=== PATIENT | male | born 1955 | race Caucasian/White ===

== ENCOUNTER → 2017-06-01 | Outpatient (CLI) | payer OTHER ==
[2017-06-01 08:52] LABS: ABSOLUTE LYMPHOCYTES (AUTO) 1.5 10^3/uL (0.5-4.7); ABSOLUTE MONOCYTES (AUTO) 0.4 10^3/uL (0.1-1.4); ABSOLUTE NEUT (AUTO) 2.9 10^3/uL (1.7-8.2); BASOPHILS % (AUTO) 0.6 % (0-2); EOSINOPHILS % (AUTO) 0.9 % (0-6); HEMATOCRIT 43.2 % (37.9-51.0); HEMOGLOBIN 15.1 g/dL (13.5-17.0); HGB HCT DIFFERENCE 2.1; LYMPHOCYTES % (AUTO) 30.6 % (13-45); MEAN CORPUSCULAR HEMOGLOBIN 31.8 pg (27.0-33.4); MEAN CORPUSCULAR HGB CONC 34.9 g/dL (32.0-36.0); MEAN CORPUSCULAR VOLUME 91 fl (80-97); MONOCYTES % (AUTO) 8.4 % (3-13); RED BLOOD COUNT 4.75 10^6/uL (4.35-5.55); RED CELL DISTRIBUTION WIDTH 12.9 % (11.5-14.0); SEGMENTED NEUTROPHILS % (AUTO) 59.5 % (42-78); WHITE BLOOD COUNT 4.9 10^3/uL (4.0-10.5)
[2017-06-01 09:21] LABS: ANION GAP 15 (5-19); BLOOD UREA NITROGEN 12 mg/dL (7-20); CALCIUM 9.9 mg/dL (8.4-10.2); CARBON DIOXIDE 27 mmol/L (22-30); CHLORIDE 99 mmol/L (98-107); CREATININE RESULT 0.75 mg/dL (0.52-1.25); GLUCOSE 98 mg/dL (75-110); POTASSIUM 4.3 mmol/L (3.6-5.0); SODIUM 140.5 mmol/L (137-145)
[2017-06-01 09:23] LABS: APPEARANCE,URINE CLEAR; BILIRUBIN,URINE NEGATIVE (NEGATIVE); GLUCOSE, URINE NEGATIVE (NEGATIVE); KETONES,URINE NEGATIVE (NEGATIVE); LEUKOCYTE ESTERASE,URINE NEGATIVE (NEGATIVE); NITRITE,URINE NEGATIVE (NEGATIVE); PROTEIN,URINE NEGATIVE (NEGATIVE); URINE SPECIFIC GRAVITY 1.014; UROBILINOGEN,URINE NEGATIVE mg/dL (<2.0)
--- NOTE | 2017-06-01 10:22 | RADIOLOGY REPORT (SQ) ---
EXAM DESCRIPTION: CHEST PA/LATERAL COMPLETED DATE/TIME: 06/01/2017 9:01 am REASON FOR STUDY: PRE-OP COMPARISON: None. EXAM PARAMETERS: NUMBER OF VIEWS: two views TECHNIQUE: Digital Frontal and Lateral radiographic views of the chest acquired. RADIATION DOSE: NA LIMITATIONS: none FINDINGS: LUNGS AND PLEURA: No opacities, masses or pneumothorax. No pleural effusion. MEDIASTINUM AND HILAR STRUCTURES: No masses or contour abnormalities. HEART AND VASCULAR STRUCTURES: Heart normal size. No evidence for failure. BONES: No acute findings. HARDWARE: None in the chest. OTHER: No other significant finding. IMPRESSION: NO SIGNIFICANT RADIOGRAPHIC FINDING IN THE CHEST. TECHNICAL DOCUMENTATION: JOB ID: [id number] [employer]- All Rights Reserved
--- NOTE | 2017-06-01 13:01 | EKG REPORT ---
SEVERITY:- NORMAL ECG - SINUS RHYTHM : Confirmed by: Freddy Richter MD 01-Jun-2017 13:00:18
== END ==
LOC: OD 08:17
PROVIDERS: ATTEND Orthopaedic Surgery
DX: Z01.818 Encounter for other preprocedural examination (principal)
CPT/HCPCS: 36415; 71020; 80048; 81001; 85025; 93005; 93010

== ENCOUNTER 2017-06-29 09:18 | Inpatient (IN) | payer OTHER ==
[~2017-06-29 09:18] MED LIST: BUPIVACAINE INJ/PF LIPOSOME/PF 266 MG/20 ML SDV INJ PRN; CEFAZOLIN INJ 1 GM VIAL INJ PRN; IBUPROFEN 800 MG in NORMAL SALINE 250 ML IV PRN; LACTATED RINGERS 1000 ML IV PRN; LANSOPRAZOLE 15 MG TAB.RAP.DR PO PRN; LIDOCAINE 0.5% INJ-PF (5 MG/ML) 50 ML SDV SUBCUT PRN; OXYCODONE HCL SR 10 MG TABLET PO PRN; VANCOMYCIN HCL 1,000 MG in DEXTROSE 5%-WATER 250 ML IV PRN
[2017-06-29] MEDS ORDERED: BUPIVACAINE INJ/PF LIPOSOME/PF 266 MG/20 ML SDV ONE (10:19)
[2017-06-29] MEDS ORDERED: THROMBIN (BOVINE) 5000 UNIT EPITAXIS KIT ONE (10:19)
[2017-06-29] MEDS ORDERED: THROMBIN (BOVINE) TOPICAL 20000 UNIT VIAL ONE (10:20)
[2017-06-29] MEDS ORDERED: MIDAZOLAM 2 MG/2 ML INJ ONE (10:26)
[2017-06-29] MEDS ORDERED: FENTANYL CITRATE INJ/PF 100 MCG/2 ML AMPUL ONE (10:26)
[2017-06-29] MEDS ORDERED: EPHEDRINE SULFATE INJ 50 MG/1 ML AMPULE ONE (10:26)
[2017-06-29] MEDS ORDERED: PROPOFOL INJ 200 MG/20 ML VIAL IV ONE ×2 (10:27→10:28)
[2017-06-29] MEDS ORDERED: TRANEXAMIC ACID INJ/PF 1,000 MG/10 ML SDV IV ONE (10:27)
[2017-06-29] MEDS ORDERED: KETAMINE HCL INJ 500 MG/10 ML VIAL ONE (10:27)
[2017-06-29] MEDS ORDERED: GLYCOPYRROLATE INJ 0.4 MG/2 ML VIAL ONE (10:29)
[2017-06-29] MEDS ORDERED: LIDOCAINE 2% INJ-PF (20 MG/ML) 2 ML AMPUL ONE (10:29)
[2017-06-29] MEDS ORDERED: ONDANSETRON HCL INJ/PF 4 MG/2 ML SDV ONE (10:29)
[2017-06-29] MEDS ORDERED: DEXAMETHASONE SOD PHOSPHATE INJ 4 MG/1 ML VIAL ONE (10:29)
[2017-06-29] MEDS ORDERED: METOCLOPRAMIDE HCL INJ/PF 10 MG/2 ML SDV ONE (10:29)
--- NOTE | 2017-06-29 11:49 | Operative Report ---
Operative Report DATE OF SURGERY: 06/29/17 PREOPERATIVE DIAGNOSIS: Left hip arthritis OPERATION: Left hip arthroplasty SURGEON: KIM JENNINGS [employer] LIP READING: MARTHA CAGE ANESTHESIA: Spinal TISSUE REMOVED OR ALTERED: Bone to pathology ESTIMATED BLOOD LOSS: 100 PROCEDURE: Implants used: Femur: Arnold Accolade 2 size 4 femur Acetabular shell: 58 mm hemispherical shell Liner: 36 mm flat cross-link polyethylene liner Head: 36 mm chrome cobalt head -5 neck The patient is placed in a right lateral decubitus position on the operating table. The left lower extremity and hindquarter is prepped and draped in a sterile fashion. A curvilinear incision was made over the greater trochanter a posterior approach the hip was taken. The femoral head is dislocated and the femoral neck transected using an oscillating saw. Attention was next turned to the acetabulum. Soft tissues cleared off the acetabulum using electrocautery. The acetabulum was then prepared using a series of hemispherical reamers until a 57 millimeters reamer is seated. Subsequently a 58 millimeters Arnold titanium hemispherical shell is impacted into position and secured with one screw. A standard flat 36 millimeters cross- link liner is impacted into the shell. Attention was next turned to the femur. Access is gained to the femoral canal using a box osteotome to the piriformis fossa. The femur is then prepared using a series of broaches until a number 4 broach is seated. A trial reduction was now performed using a 36 millimeters head with and minus 5 neck. Preoperative leg length was recreated and is excellent anterior posterior stability. A decision was made to proceed with the above construct. All trial implants were removed. The wound is irrigated with pulsed lavage. A number 4 stem is impacted into the femoral canal. A trial reduction was again performed with a 36 mm head and a -5 neck. Findings as previously. The hip was dislocated one last time and the final chrome-cobalt head is impacted onto the trunnion. The hip was reduced. Wound is copiously irrigated with pulsed lavage. Sent closed in layers using interrupted Vicryl followed by bry. A sterile dressing is applied and the patient's returned to recovery room in satisfactory patient.
[2017-06-29] MEDS ORDERED: FENTANYL CITRATE INJ/PF 100 MCG/2 ML AMPUL IV PRN ×3 (12:34)
[2017-06-29] MEDS ORDERED: PROMETHAZINE HCL INJ 25 MG/1 ML VIAL IV PRN ×2 (12:34)
[2017-06-29] MEDS ORDERED: ONDANSETRON HCL INJ/PF 4 MG/2 ML SDV IV PRN (12:34)
[2017-06-29] MEDS ORDERED: MORPHINE SULFATE 10 MG/ML INJ IV PRN ×4 (12:34→12:40)
[2017-06-29] MEDS ORDERED: DIPHENHYDRAMINE HCL 50 MG/ML VIAL IV PRN ×2 (12:34→12:40)
[2017-06-29] MEDS ORDERED: MEPERIDINE HCL/PF INJ 25 MG/1 ML DISP.SYRIN IV PRN (12:34)
[2017-06-29] MEDS ORDERED: RINGERS SOLUTION,LACTATED 1,000 ML IV PRN (12:40)
[2017-06-29] MEDS ORDERED: MORPHINE SULFATE 10 MG/ML INJ IM PRN (12:40)
[2017-06-29] MEDS ORDERED: MAG HYDROX/AL HYDROX/SIMETH SUSP 30 ML UDCUP PO PRN (12:40)
[2017-06-29] MEDS ORDERED: ZOLPIDEM TARTRATE 5 MG TABLET PO PRN (12:40)
[2017-06-29] MEDS ORDERED: ONDANSETRON 4 MG TAB.RAPDIS PO PRN (12:40)
--- NOTE | 2017-06-29 12:51 | RADIOLOGY REPORT (SQ) ---
EXAM DESCRIPTION: PELVIS AP COMPLETED DATE/TIME: 06/29/2017 12:41 pm REASON FOR STUDY: POST OP LEFT TOTAL HIP ARTHROPLASTY M16.12 UNILATERAL PRIMARY OSTEOARTHRITIS, LEF T HIP COMPARISON: None. NUMBER OF VIEWS: One view TECHNIQUE: AP Pelvis LIMITATIONS: None. FINDINGS: MINERALIZATION: Normal. HIPS: Total left hip arthroplasty without complication. Severe right hip osteoarthritis. PELVIS AND SACRUM: No acute fracture or dislocation. No worrisome bone lesions. PUBIS AND ISCHIUM: No acute fracture. LOWER LUMBAR SPINE: No significant findings as visualized. SOFT TISSUES: No findings. OTHER: No other significant finding. IMPRESSION: NO ACUTE OSSEOUS ABNORMALITY OR HARDWARE COMPLICATION. SEVERE RIGHT HIP OSTEOARTHRITIS. TECHNICAL DOCUMENTATION: JOB ID: [id number] [employer]- All Rights Reserved
[2017-06-29] MEDS ORDERED: TRANEXAMIC ACID INJ/PF 1,000 MG/10 ML SDV IV PRN (14:00)
[2017-06-29] MEDS: PREGABALIN 75 MG CAPSULE PO SCH (18:24)
[2017-06-29] MEDS ORDERED: ACETAMINOPHEN 100 ML IV ONE (18:40)
[2017-06-29] MEDS ORDERED: IBUPROFEN INJ 800 MG/8 ML VIAL IV SCH (20:00)
[2017-06-29] MEDS: IBUPROFEN 800 MG in NORMAL SALINE 250 ML IV SCH (21:42)
[2017-06-29] MEDS: OXYCODONE HCL SR 10 MG TABLET PO SCH (21:43)
[2017-06-29] MEDS ORDERED: ACETAMINOPHEN 325 MG TABLET PO PRN (22:00)
[2017-06-30] MEDS ORDERED: VANCOMYCIN HCL 1,000 MG in DEXTROSE 5%-WATER 250 ML IV ONE (01:00)
[2017-06-30] MEDS: LANSOPRAZOLE 30 MG TAB.RAP.DR PO SCH (05:20)
[2017-06-30] MEDS: IBUPROFEN 800 MG in NORMAL SALINE 250 ML IV SCH ×3 (05:20→21:14)
[2017-06-30] MEDS: LEVOTHYROXINE SODIUM 0.15 MG TABLET PO SCH (05:20)
[2017-06-30 06:34] LABS: HEMATOCRIT 38.8 % (37.9-51.0); HEMOGLOBIN 13.3 g/dL (13.5-17.0); MEAN CORPUSCULAR HEMOGLOBIN 31.6 pg (27.0-33.4); MEAN CORPUSCULAR HGB CONC 34.3 g/dL (32.0-36.0); MEAN CORPUSCULAR VOLUME 92 fl (80-97); PLATELET COUNT 230 10^3/uL (150-450); RED BLOOD COUNT 4.21 10^6/uL (4.35-5.55); WHITE BLOOD COUNT 9.4 10^3/uL (4.0-10.5)
[2017-06-30 06:56] LABS: ANION GAP 11 (5-19); BLOOD UREA NITROGEN 13 mg/dL (7-20); CALCIUM 9.4 mg/dL (8.4-10.2); CARBON DIOXIDE 26 mmol/L (22-30); CHLORIDE 101 mmol/L (98-107); GLUCOSE 106 mg/dL (75-110); POTASSIUM 4.3 mmol/L (3.6-5.0); SODIUM 137.7 mmol/L (137-145)
--- NOTE | 2017-06-30 07:00 | PDOC PROGRESS REPORT ---
Subjective Progress Note for:: 06/30/17 Reason For Visit: LEFT HIP ARTHRITIS 61-year-old white male postop day 1 left hip arthroplasty. Patient denies any pain. Physical Exam Vital Signs: Temp Pulse Resp BP Pulse Ox 36.6 C 56 L 15 105/51 L 99 06/30/17 04:14 06/30/17 04:14 06/30/17 04:14 06/30/17 04:14 06/30/17 04:14 Intake & Output 06/28/17 06/29/17 06/30/17 06:59 06:59 06:59 Intake Total 4045 Output Total 1750 Balance 2295 General appearance: PRESENT: no acute distress Head exam: PRESENT: normocephalic Respiratory exam: PRESENT: unlabored Cardiovascular exam: PRESENT: RRR Pulses: PRESENT: +1 pedal pulses bilateral Vascular exam: PRESENT: normal capillary refill GI/Abdominal exam: PRESENT: soft Rectal exam: PRESENT: deferred Extremities exam: PRESENT: other - Left hip dressing clean dry and intact. Leg lengths are equal. Distal neurovascular examination is intact. Neurological exam: PRESENT: alert, awake, oriented to person, oriented to place , oriented to time, oriented to situation. ABSENT: motor sensory deficit Psychiatric exam: PRESENT: appropriate affect, normal mood. ABSENT: homicidal ideation, suicidal ideation Skin exam: PRESENT: abrasion Results Laboratory Results: 06/30/17 05:59 06/29/17 06/30/17 09:54 05:59 WBC 9.4 RBC 4.21 L Hgb 13.3 L Hct 38.8 MCV 92 MCH 31.6 MCHC 34.3 RDW 13.0 Plt Count 230 Blood Type A POSITIVE Antibody Screen NEGATIVE Impressions: Pelvis X-Ray 06/29/17 00:00 IMPRESSION: NO ACUTE OSSEOUS ABNORMALITY OR HARDWARE COMPLICATION. SEVERE RIGHT HIP OSTEOARTHRITIS. Status: Imported from PACS Assessment & Plan - Diagnosis (1) Arthritis of left hip Is this a current diagnosis for this admission?: Yes Plan: 61-year-old postop day 1 left hip arthroplasty with uneventful postoperative course. Anticipate ongoing physical therapy today and discharge tomorrow with home health [facility]. - Time Time Spent with patient: 15-24 minutes Anticipated discharge: Home with Homehealth Within: within 24 hours
[2017-06-30] MEDS: PREGABALIN 75 MG CAPSULE PO SCH ×2 (09:57→17:43)
[2017-06-30] MEDS: ASPIRIN 81 MG TABLET, ENT COATED PO SCH (09:57)
[2017-06-30] MEDS: OXYCODONE HCL SR 10 MG TABLET PO SCH ×2 (09:57→21:13)
[2017-06-30] MEDS ORDERED: VITAMIN D3 PO SCH (10:00)
[2017-06-30] MEDS ORDERED: [UNRECOGNIZED DRUG - OTHER] PO SCH (10:00)
[2017-06-30] MEDS ORDERED: ELDERBERRY FRUIT AND FLOWER PO SCH (10:00)
[2017-06-30] MEDS ORDERED: VITAMIN K2 PO SCH (10:00)
[2017-07-01 05:12] LABS: HEMATOCRIT 33.6 % (37.9-51.0); HEMOGLOBIN 11.6 g/dL (13.5-17.0); RED BLOOD COUNT 3.61 10^6/uL (4.35-5.55); WHITE BLOOD COUNT 6.4 10^3/uL (4.0-10.5)
[2017-07-01 05:13] LABS: MEAN CORPUSCULAR HEMOGLOBIN 32.1 pg (27.0-33.4); MEAN CORPUSCULAR HGB CONC 34.5 g/dL (32.0-36.0); MEAN CORPUSCULAR VOLUME 93 fl (80-97); PLATELET COUNT 178 10^3/uL (150-450)
[2017-07-01] MEDS: IBUPROFEN 800 MG in NORMAL SALINE 250 ML IV SCH ×2 (05:34→13:32)
[2017-07-01] MEDS: LANSOPRAZOLE 30 MG TAB.RAP.DR PO SCH (05:34)
[2017-07-01] MEDS: OXYCODONE HCL IR 5 MG TABLET PO PRN ×2 (05:34→13:53)
[2017-07-01] MEDS: LEVOTHYROXINE SODIUM 0.15 MG TABLET PO SCH (05:34)
--- NOTE | 2017-07-01 07:22 | PDOC DISCHARGE SUMMARY ---
General - Admit/Disc Date/PCP Admission Date/Primary Care Provider: 06/29/17 09:18 Discharge Date: 07/01/17 - Discharge Diagnosis (1) Arthritis of left hip Is this a current diagnosis for this admission?: Yes - Additional Information Resuscitation Status: Full Code Discharge Diet: As Tolerated, Regular Discharge Activity: Activity As Tolerated, No Driving, No tub bath, Walk Frequently Home Medications: Aspirin [Aspirin EC] 81 mg PO DAILY 06/29/17 Elderberry Fruit and Flower [Black Elderberry 575 mg Cap] 1 tab PO DAILY Goldenseal Root [Palm Seal Root] 1 tab PO DAILY 06/29/17 Levothyroxine Sodium [Synthroid] 150 mcg PO DAILY 06/29/17 Vitamin D3/Vitamin K2 (Mk4) [K2 Plus D3 Tablet] 1 tab PO DAILY 06/29/17 History of Present Illness History of Present Illness: AFRICA DUMONT is a 61 year old male with progressive pain and functional disability admitted for elective total left hip arthroplasty. Hospital Course Hospital Course: 61-year-old white male admitted through the OR for elective total left hip arthroplasty. He undergoes uncomplicated procedure and is taken to PACU in satisfactory condition. He is returned to the surgical floor where he is seen by physical therapy and nursing staff for pain control. He makes great progress with physical therapy ambulating up to 350 feet independently. His pain was controlled by nursing staff and Dr. Barksdale and he remains comfortable throughout his postoperative course. He will be discharged home today with home health nursing, home physical therapy, wheeled walker, bedside commode. He will follow-up with Dr. Barksdale and Shemar at [facility] for surgery 2 weeks postoperatively. Physical Exam Vital Signs: Temp Pulse Resp BP Pulse Ox 36.9 C 65 17 115/86 H 98 07/01/17 03:40 07/01/17 03:40 07/01/17 03:40 07/01/17 03:40 07/01/17 03:40 Intake & Output 06/30/17 07/01/17 07/02/17 06:59 06:59 06:59 Intake Total 4045 1933 Output Total 1750 Balance 2295 1933 General appearance: PRESENT: no acute distress, well-developed, well-nourished Head exam: PRESENT: atraumatic, normocephalic Respiratory exam: PRESENT: unlabored Pulses: PRESENT: normal dorsalis pedis pul, +2 pedal pulses bilateral Vascular exam: PRESENT: normal capillary refill Additional comments: Patient sitting upright in chair at the bedside with her feet propped up on retractable ottoman. Bilateral lower extremities have minimal pedal edema and brisk capillary refill to toes. He is nontender to palpation. Postoperative dressing on left hip is clean dry and intact. This is left in place. His sensory and motor functions are intact and his distal neurovascular exam is intact. Musculoskeletal exam: PRESENT: ambulatory Additional comments: Patient makes great steady progress with physical therapy ambulating up to 350 feet independently. He will continue to work with home physical therapy to improve strength and range of motion of left lower extremity. Neurological exam: PRESENT: alert, awake, oriented to person, oriented to place , oriented to time, oriented to situation, CN II-XII grossly intact. ABSENT: motor sensory deficit Psychiatric exam: PRESENT: appropriate affect, normal mood. ABSENT: homicidal ideation, suicidal ideation Skin exam: PRESENT: dry, intact, warm. ABSENT: cyanosis, rash Results Laboratory Results: 07/01/17 04:52 06/30/17 05:59 07/01/17 04:52 WBC 6.4 RBC 3.61 L Hgb 11.6 L Hct 33.6 L MCV 93 MCH 32.1 MCHC 34.5 RDW 13.0 Plt Count 178 Impressions: Pelvis X-Ray 06/29/17 00:00 IMPRESSION: NO ACUTE OSSEOUS ABNORMALITY OR HARDWARE COMPLICATION. SEVERE RIGHT HIP OSTEOARTHRITIS. Plan Discharge Plan: 61-year-old white male 2 days status post total left hip arthroplasty. Patient maintained great pain control postoperatively and made great progress with physical therapy ambulating up to 350 feet independently. He will be discharged to his home today with home health nursing, home physical therapy, wheeled walker, bedside commode. He will continue to work with physical therapy and snf will change his left hip dressing when they see fit i.e. when it is saturated with morgan blood. He will follow-up with [facility] for surgery with Dr. Barksdale and Shemar COPPOLA 2 weeks postoperatively for suture removal and reevaluation. Time Spent: Less than 30 Minutes
[2017-07-01] MEDS: PREGABALIN 75 MG CAPSULE PO SCH (09:24)
[2017-07-01] MEDS: OXYCODONE HCL SR 10 MG TABLET PO SCH (09:24)
[2017-07-01] MEDS: ASPIRIN 81 MG TABLET, ENT COATED PO SCH (09:24)
[2017-07-01 11:59] VITALS: BP 104/51
== END 2017-07-01 13:58 | disposition home health service (06) | DRG 470 ==
LOC: INOR 09:18 → 4S 13:03
PROVIDERS: ADMIT Orthopaedic Surgery; ATTEND Orthopaedic Surgery
PROC: 0SRB02A Replacement of Left Hip Joint with Metal on Polyethylene Synthetic Substitute, Uncemented, Open Approach (ICD-10-PCS; principal; 2017-06-29 11:15)
DX: M16.12 Unilateral primary osteoarthritis, left hip (principal); E03.9 Hypothyroidism, unspecified
CPT/HCPCS: 01214; 36415; 72170; 80048; 85027; 86850; 86900; 86901; 88304; 88311; 94799; C1713; C9290; J0131; J0690; J1100; J1741; J2250; J2405; J2704; J2765; J3010; J3370; J3490; J7050; J7060

== ENCOUNTER → 2019-11-01 | Outpatient (CLI) | payer OTHER ==
--- NOTE | 2019-11-01 08:58 | RADIOLOGY REPORT (SQ) ---
EXAM DESCRIPTION: CHEST PA/LATERAL IMAGES COMPLETED DATE/TIME: 11/01/2019 8:50 am REASON FOR STUDY: PRE-OP COMPARISON: None. EXAM PARAMETERS: NUMBER OF VIEWS: two views TECHNIQUE: Digital Frontal and Lateral radiographic views of the chest acquired. RADIATION DOSE: NA LIMITATIONS: none FINDINGS: LUNGS AND PLEURA: No opacities, masses or pneumothorax. No pleural effusion. MEDIASTINUM AND HILAR STRUCTURES: No masses or contour abnormalities. HEART AND VASCULAR STRUCTURES: Heart normal size. No evidence for failure. BONES: No acute findings. HARDWARE: None in the chest. OTHER: No other significant finding. IMPRESSION: NO SIGNIFICANT RADIOGRAPHIC FINDING IN THE CHEST. TECHNICAL DOCUMENTATION: JOB ID: [id number] 2010 [employer] All Rights Reserved Reading location - IP/workstation name: [email or web address]
[2019-11-01 09:17] LABS: ABSOLUTE LYMPHOCYTES (AUTO) 1.3 10^3/uL (0.5-4.7); ABSOLUTE MONOCYTES (AUTO) 0.4 10^3/uL (0.1-1.4); BASOPHILS % (AUTO) 0.6 % (0-2); EOSINOPHILS % (AUTO) 0.9 % (0-6); HEMATOCRIT 46.2 % (37.9-51.0); HEMOGLOBIN 16.1 g/dL (13.5-17.0); LYMPHOCYTES % (AUTO) 26.3 % (13-45); MEAN CORPUSCULAR HEMOGLOBIN 32.2 pg (27.0-33.4); MEAN CORPUSCULAR HGB CONC 34.9 g/dL (32.0-36.0); MEAN CORPUSCULAR VOLUME 92 fl (80-97); PLATELET COUNT 242 10^3/uL (150-450); RED BLOOD COUNT 5.01 10^6/uL (4.35-5.55); RED CELL DISTRIBUTION WIDTH 12.7 % (11.5-14.0); SEGMENTED NEUTROPHILS % (AUTO) 63.2 % (42-78); TOTAL CELLS COUNTED % (AUTO) 100 %; WHITE BLOOD COUNT 4.8 10^3/uL (4.0-10.5)
[2019-11-01 09:35] LABS: ANION GAP 9 (5-19); BLOOD UREA NITROGEN 9 mg/dL (7-20); CALCIUM 9.8 mg/dL (8.4-10.2); CARBON DIOXIDE 29 mmol/L (22-30); CHLORIDE 97 mmol/L (98-107); GLUCOSE 102 mg/dL (75-110); POTASSIUM 4.8 mmol/L (3.6-5.0)
[2019-11-01 10:03] LABS: APPEARANCE,URINE CLEAR; BILIRUBIN,URINE NEGATIVE (NEGATIVE); COLOR,URINE YELLOW; GLUCOSE, URINE NEGATIVE (NEGATIVE); KETONES,URINE NEGATIVE (NEGATIVE); LEUKOCYTE ESTERASE,URINE NEGATIVE (NEGATIVE); NITRITE,URINE NEGATIVE (NEGATIVE); PROTEIN,URINE NEGATIVE (NEGATIVE); URINE SPECIFIC GRAVITY 1.008; UROBILINOGEN,URINE NEGATIVE mg/dL (<2.0)
--- NOTE | 2019-11-02 07:46 | EKG REPORT ---
SEVERITY:- NORMAL ECG - SINUS RHYTHM : Confirmed by: Hilary Reynolds MD 02-Nov-2019 07:45:42
== END ==
LOC: OD 08:18
PROVIDERS: ATTEND Orthopaedic Surgery
DX: Z01.812 Encounter for preprocedural laboratory examination (principal); Z01.811 Encounter for preprocedural respiratory examination; Z01.810 Encounter for preprocedural cardiovascular examination
CPT/HCPCS: 36415; 71046; 80048; 81001; 85025; 93005; 93010

== ENCOUNTER 2019-11-28 05:34 | Inpatient (IN) | payer OTHER ==
[2019-11-23 10:06] LABS: HEMATOCRIT 44.7 % (37.9-51.0); HEMOGLOBIN 15.6 g/dL (13.5-17.0); MEAN CORPUSCULAR HEMOGLOBIN 32.2 pg (27.0-33.4); MEAN CORPUSCULAR VOLUME 92 fl (80-97); PLATELET COUNT 225 10^3/uL (150-450); RED BLOOD COUNT 4.86 10^6/uL (4.35-5.55); RED CELL DISTRIBUTION WIDTH 12.8 % (11.5-14.0); WHITE BLOOD COUNT 4.8 10^3/uL (4.0-10.5)
--- NOTE | 2019-11-23 10:17 | RADIOLOGY REPORT (SQ) ---
EXAM DESCRIPTION: CHEST PA/LATERAL IMAGES COMPLETED DATE/TIME: 11/23/2019 9:43 am REASON FOR STUDY: PRE-OP COMPARISON: PA and lateral views of the chest from 11/01/2019. EXAM PARAMETERS: NUMBER OF VIEWS: Two views. TECHNIQUE: PA and lateral views of the chest were obtained. RADIATION DOSE: NA. LIMITATIONS: None. FINDINGS: LUNGS AND PLEURA: No consolidation, pleural effusion or pneumothorax. MEDIASTINUM AND HILAR STRUCTURES: No mediastinal or hilar contour abnormality. HEART AND VASCULAR STRUCTURES: The cardiac silhouette and pulmonary vasculature are within normal steven its. BONES: No acute findings. HARDWARE: None in the chest. OTHER: No other finding. IMPRESSION: No acute cardiopulmonary process. TECHNICAL DOCUMENTATION: JOB ID: [id number] 2010 [employer]- All Rights Reserved Reading location - IP/workstation name: [email or web address]
[2019-11-23 10:25] LABS: ANION GAP 12 (5-19); BLOOD UREA NITROGEN 14 mg/dL (7-20); CALCIUM 9.4 mg/dL (8.4-10.2); CARBON DIOXIDE 24 mmol/L (22-30); CHLORIDE 103 mmol/L (98-107); GLUCOSE 89 mg/dL (75-110); POTASSIUM 4.8 mmol/L (3.6-5.0)
--- NOTE | 2019-11-23 11:09 | EKG REPORT ---
SEVERITY:- NORMAL ECG - SINUS RHYTHM : Confirmed by: Hilary Reynolds MD 23-Nov-2019 11:08:58
[~2019-11-28 05:34] MED LIST changes: -CEFAZOLIN INJ 1 GM VIAL INJ PRN; +CEFAZOLIN INJ 1 GM VIAL IV PRN; -LANSOPRAZOLE 15 MG TAB.RAP.DR PO PRN; +PANTOPRAZOLE SODIUM 20 MG TABLET.DR PO PRN
[2019-11-28] MEDS ORDERED: FAMOTIDINE 20 MG TABLET ONE (06:24)
[2019-11-28] MEDS ORDERED: OXYCODONE HCL SR 10 MG TABLET PO ONE (06:24)
[2019-11-28] MEDS ORDERED: BUPIVACAINE HCL 0.25% /EPINEPHRINE INJ/PF 30 ML SDV ONE (06:50)
[2019-11-28] MEDS ORDERED: PROPOFOL INJ 200 MG/20 ML VIAL IV ONE (06:52)
[2019-11-28] MEDS ORDERED: ONDANSETRON HCL INJ/PF 4 MG/2 ML SDV ONE (06:52)
[2019-11-28] MEDS ORDERED: MIDAZOLAM 2 MG/2 ML INJ ONE (06:52)
[2019-11-28] MEDS ORDERED: TRANEXAMIC ACID INJ/PF 1,000 MG/10 ML SDV ONE (06:52)
[2019-11-28] MEDS ORDERED: CEFAZOLIN INJ 1 GM VIAL ONE (07:13)
[2019-11-28] MEDS ORDERED: MORPHINE SULFATE 10 MG/ML INJ IV PRN (08:01)
[2019-11-28] MEDS ORDERED: MEPERIDINE HCL/PF INJ 25 MG/1 ML DISP.SYRIN IV PRN (08:01)
[2019-11-28] MEDS ORDERED: PROMETHAZINE HCL INJ 25 MG/1 ML VIAL IV PRN (08:01)
[2019-11-28] MEDS ORDERED: FENTANYL CITRATE INJ/PF 100 MCG/2 ML AMPUL IV PRN ×3 (08:01)
[2019-11-28] MEDS ORDERED: DIPHENHYDRAMINE HCL 50 MG/ML VIAL IV PRN ×2 (08:01→08:28)
[2019-11-28] MEDS ORDERED: ZOLPIDEM TARTRATE 5 MG TABLET PO PRN (08:28)
[2019-11-28] MEDS ORDERED: ONDANSETRON 4 MG TAB.RAPDIS PO PRN (08:28)
[2019-11-28] MEDS ORDERED: MAG HYDROX/AL HYDROX/SIMETH SUSP 30 ML UDCUP PO PRN (08:28)
[2019-11-28] MEDS ORDERED: ONDANSETRON HCL INJ/PF 4 MG/2 ML SDV IV PRN (08:28)
[2019-11-28] MEDS ORDERED: RINGERS SOLUTION,LACTATED 1,000 ML IV PRN (08:28)
[2019-11-28] MEDS ORDERED: ACETAMINOPHEN 325 MG TABLET PO PRN (08:28)
[2019-11-28] MEDS ORDERED: TRANEXAMIC ACID INJ/PF 1,000 MG/10 ML SDV IV ONE (08:28)
--- NOTE | 2019-11-28 08:28 | Operative Report ---
Operative Report DATE OF SURGERY: 11/28/19 PREOPERATIVE DIAGNOSIS: Right hip arthritis OPERATION: Right hip arthroplasty SURGEON: KIM JENNINGS ANESTHESIA: Spinal TISSUE REMOVED OR ALTERED: Femoral head to pathology ESTIMATED BLOOD LOSS: 75 PROCEDURE: Implants used: Femur: Angel Accolade 2 stem size 5 Acetabular shell: 56 mm hemispherical shell Liner: 36 mm flat cross-link polyethylene liner Head: 36 mm chrome cobalt head -5 neck The patient is placed in a left lateral decubitus position on the operating table. The right lower extremity and hindquarter is prepped and draped in a sterile fashion. A curvilinear incision was made over the greater trochanter a posterior approach the hip was taken. The femoral head is dislocated and the femoral neck transected using an oscillating saw. Attention was next turned to the acetabulum. Soft tissues cleared off the acetabulum using electrocautery. The acetabulum was then prepared using a series of hemispherical reamers until a 56 millimeters reamer is seated. Subsequently a 56 millimeters Promise titanium hemispherical shell is impacted into position. A standard flat 36 millimeters cross-link liner is impacted into the shell. Attention was next turned to the femur. Access is gained to the femoral canal using a box osteotome to the piriformis fossa. The femur is then prepared using a series of broaches until a number 5 broach is seated. A trial reduction was now performed using a 36 millimeters head with -5 neck. Preoperative leg length was recreated and is excellent anterior posterior stability. A decision was made to proceed with the above construct. All trial implants were removed. The wound is irrigated with pulsed lavage. A number 5 stem is impacted into the femoral canal. A trial reduction was again performed with a 36 mm head and a -5 neck. Findings as previously. The hip was dislocated one last time and the final chrome-cobalt head is impacted onto the trunnion. The hip was reduced. Wound is copiously irrigated with pulsed lavage. Sent closed in layers using interrupted Vicryl followed by Dermabond tape. A sterile dressing is applied and the patient's returned to recovery room in satisfactory patient.
--- NOTE | 2019-11-28 09:59 | RADIOLOGY REPORT (SQ) ---
EXAM DESCRIPTION: PELVIS AP IMAGES COMPLETED DATE/TIME: 11/28/2019 8:58 am REASON FOR STUDY: Post Op Long Cassette in PACU M16.11 UNILATERAL PRIMARY OSTEOARTHRITIS, RIGHT HI P COMPARISON: 06/29/2017 NUMBER OF VIEWS: A frontal radiograph of the pelvis is supplemented with a frontal image of the righ t hip. TECHNIQUE: Digital radiographic images of the right hip post-procedure. LIMITATIONS: None. FINDINGS: BONES: The patient is status post right total hip arthroplasty without evidence of hardwar e complication. No acute osseous injury is demonstrated. DEVICE: Total hip replacement. Components of the device in appropriate location. SOFT TISSUES: No worrisome findings. Expected postoperative soft tissue changes. IMPRESSION: Status post right total hip arthroplasty without of complication. TECHNICAL DOCUMENTATION: JOB ID: [id number] 2010 [employer]- All Rights Reserved Reading location - IP/workstation name: [email or web address]
[2019-11-28] MEDS ORDERED: MULTIVITAMIN TABLET PO SCH (10:00)
[2019-11-28] MEDS ORDERED: OXYCODONE HCL SR 10 MG TABLET PO SCH (10:00)
[2019-11-28] MEDS ORDERED: LEVOTHYROXINE SODIUM 0.15 MG TABLET PO SCH (10:00)
--- NOTE | 2019-11-28 10:12 | Operative Report ---
Operative Report DATE OF SURGERY: 11/28/19 PREOPERATIVE DIAGNOSIS: Right hip arthritis OPERATION: Right hip arthroplasty SURGEON: KIM JENNINGS ANESTHESIA: Spinal TISSUE REMOVED OR ALTERED: Femoral head to pathology ESTIMATED BLOOD LOSS: 75 PROCEDURE: Implants used: Femur: Prmoise Accolade 2 stem, size 5 Acetabular shell: 62 mm hemispherical shell Liner: 36 mm flat cross-link polyethylene liner Head: 36 mm chrome cobalt head -5 neck The patient is placed in a left lateral decubitus position on the operating table. The right lower extremity and hindquarter is prepped and draped in a sterile fashion. A curvilinear incision was made over the greater trochanter a posterior approach the hip was taken. The femoral head is dislocated and the femoral neck transected using an oscillating saw. Attention was next turned to the acetabulum. Soft tissues cleared off the acetabulum using electrocautery. The acetabulum was then prepared using a series of hemispherical reamers until a 62 millimeters reamer is seated. Subsequently a 62 millimeters Promise titanium hemispherical shell is impacted into position. A standard flat 36 millimeters cross-link liner is impacted into the shell. Attention was next turned to the femur. Access is gained to the femoral canal using a box osteotome to the piriformis fossa. The femur is then prepared using a series of broaches until a number 5 broach is seated. A trial reduction was now performed using a 36 millimeters head with -5 neck. Preoperative leg length was recreated and is excellent anterior posterior stability. A decision was made to proceed with the above construct. All trial implants were removed. The wound is irrigated with pulsed lavage. A number 5 stem is impacted into the femoral canal. A trial reduction was again performed with a 36 mm head and a -5 neck. Findings as previously. The hip was dislocated one last time and the final chrome-cobalt head is impacted onto the trunnion. The hip was reduced. Wound is copiously irrigated with pulsed lavage. Sent closed in layers using interrupted Vicryl followed by bry. A sterile dressing is applied and the patient's returned to recovery room in satisfactory patient.
[2019-11-28] MEDS: SENNOSIDES/DOCUSATE 8.6-50 MG 1 EACH TABLET PO SCH ×2 (10:13→17:13)
[2019-11-28] MEDS: PRENATAL VITAMIN W DHA CAPSULE PO SCH (10:13)
[2019-11-28] MEDS: IBUPROFEN 800 MG in NORMAL SALINE 250 ML IV SCH ×2 (13:49→22:54)
[2019-11-28] MEDS ORDERED: PHENYLEPHRINE HCL INJ/PF 10 MG/1 ML SDV ONE (14:41)
[2019-11-28] MEDS: OXYCODONE HCL SR 10 MG TABLET PO SCH (17:14)
[2019-11-28] MEDS ORDERED: VANCOMYCIN HCL 1,000 MG in DEXTROSE 5%-WATER 250 ML IV ONE (20:28)
[2019-11-28] MEDS: OXYCODONE HCL IR 5 MG TABLET PO PRN (23:13)
[2019-11-29] MEDS: OXYCODONE HCL SR 10 MG TABLET PO SCH (05:39)
[2019-11-29] MEDS: IBUPROFEN 800 MG in NORMAL SALINE 250 ML IV SCH (05:40)
[2019-11-29] MEDS ORDERED: PANTOPRAZOLE SODIUM 40 MG TABLET.DR PO SCH (06:00)
[2019-11-29] MEDS ORDERED: LEVOTHYROXINE SODIUM 0.15 MG TABLET PO SCH (06:00)
[2019-11-29 06:13] LABS: HEMATOCRIT 37.7 % (37.9-51.0); HEMOGLOBIN 13.2 g/dL (13.5-17.0); MEAN CORPUSCULAR HEMOGLOBIN 32.8 pg (27.0-33.4); MEAN CORPUSCULAR HGB CONC 35.1 g/dL (32.0-36.0); MEAN CORPUSCULAR VOLUME 94 fl (80-97); PLATELET COUNT 161 10^3/uL (150-450); RED BLOOD COUNT 4.04 10^6/uL (4.35-5.55); RED CELL DISTRIBUTION WIDTH 12.8 % (11.5-14.0); WHITE BLOOD COUNT 5.5 10^3/uL (4.0-10.5)
[2019-11-29 06:28] LABS: ANION GAP 7 (5-19); BLOOD UREA NITROGEN 12 mg/dL (7-20); CALCIUM 8.8 mg/dL (8.4-10.2); CARBON DIOXIDE 26 mmol/L (22-30); CHLORIDE 103 mmol/L (98-107); GLUCOSE 85 mg/dL (75-110); POTASSIUM 4.3 mmol/L (3.6-5.0)
--- NOTE | 2019-11-29 07:10 | PDOC DISCHARGE SUMMARY ---
Impression - Admit/DC Date/PCP Admission Date/Primary Care Provider: 11/28/19 05:34 MONIKA SMITH Discharge Date: 11/29/19 - Additional Information Resuscitation Status: Full Code Discharge Diet: Regular Discharge Activity: Balance Activity w/Rest, No tub bath Referrals: KIM JENNINGS MD [ACTIVE STAFF] - 12/13/19 9:45 am Home Medications: Levothyroxine Sodium [Synthroid] 150 mcg PO DAILY 06/29/17 Vitamin D3/Vitamin K2 (Mk4) [K2 Plus D3 Tablet] 1 tab PO DAILY 06/29/17 Multivitamin [Multivitamins] 1 each PO DAILY 11/23/19 Vitamin K2 40 mcg PO DAILY 11/23/19 History of Present Illiness History of Present Illness: AFRICA DUMONT is a 64 year old male 64-year-old white male with progressive right hip pain and dysfunction second osteoarthritis. Patient admitted for elective right hip arthroplasty. Hospital Course Hospital Course: Patient is admitted through the operating where he undergoes uncomplicated right hip arthroplasty. Is returned to the floor in satisfactory patient. Makes excellent progress with physical therapy on the day of surgery. There is some wound drainage requiring reinforcement of the dressing by nursing. Dressing is changed the first postoperative morning by myself. The underlying wound is clean dry and intact well approximated with Dermabond. Physical Exam Vital Signs: Temp Pulse Resp BP Pulse Ox 37.1 C 64 16 138/64 H 95 11/28/19 23:14 11/28/19 23:14 11/28/19 23:14 11/28/19 23:14 11/28/19 23:14 Intake & Output 11/28/19 11/29/19 11/30/19 06:59 06:59 06:59 Intake Total 250 3430 Output Total 550 Balance 250 2880 Weight 77.1 kg General appearance: PRESENT: no acute distress Head exam: PRESENT: normocephalic Respiratory exam: PRESENT: unlabored Cardiovascular exam: PRESENT: RRR Pulses: PRESENT: +1 pedal pulses bilateral Vascular exam: PRESENT: normal capillary refill GI/Abdominal exam: PRESENT: soft Rectal exam: PRESENT: deferred Musculoskeletal exam: PRESENT: other - Right hip wound redressed on the morning of discharge. The wound is dry and well approximated Dermabond. Leg lengths are equal. Distal neurovascular function is intact. Neurological exam: PRESENT: alert, awake, oriented to person, oriented to place, oriented to time, oriented to situation. ABSENT: motor sensory deficit Skin exam: PRESENT: dry, intact, warm. ABSENT: cyanosis, rash Results Laboratory Results: WBC 5.5 10^3/uL (4.0-10.5) 11/29/19 04:51 RBC 4.04 10^6/uL (4.35-5.55) L 11/29/19 04:51 Hgb 13.2 g/dL (13.5-17.0) L 11/29/19 04:51 Hct 37.7 % (37.9-51.0) L 11/29/19 04:51 MCV 94 fl (80-97) 11/29/19 04:51 MCH 32.8 pg (27.0-33.4) 11/29/19 04:51 MCHC 35.1 g/dL (32.0-36.0) 11/29/19 04:51 RDW 12.8 % (11.5-14.0) 11/29/19 04:51 Plt Count 161 10^3/uL (150-450) 11/29/19 04:51 Sodium 135.5 mmol/L (137-145) L 11/29/19 04:51 Potassium 4.3 mmol/L (3.6-5.0) 11/29/19 04:51 Chloride 103 mmol/L (98-107) 11/29/19 04:51 Carbon Dioxide 26 mmol/L (22-30) 11/29/19 04:51 Anion Gap 7 (5-19) 11/29/19 04:51 BUN 12 mg/dL (7-20) 11/29/19 04:51 Creatinine 0.77 mg/dL (0.52-1.25) 11/29/19 04:51 Est GFR ( Amer) > 60 (>60) 11/29/19 04:51 Est GFR (MDRD) Non-Af > 60 (>60) 11/29/19 04:51 Glucose 85 mg/dL (75-110) 11/29/19 04:51 Calcium 8.8 mg/dL (8.4-10.2) 11/29/19 04:51 COVID-19 Source NASOPHARYNGEAL 11/23/19 09:13 COVID-19 (RICCARDO) NOT DETECTED 11/23/19 09:13 Blood Type A POSITIVE 11/28/19 06:17 Antibody Screen NEGATIVE 11/28/19 06:17 Impressions: Chest X-Ray 11/23/19 09:31 IMPRESSION: No acute cardiopulmonary process. Pelvis X-Ray 11/28/19 08:33 IMPRESSION: Status post right total hip arthroplasty without of complication. Plan Plan of Treatment: Discharge home on a weightbearing as tolerated basis with home health services and DME. Follow-up with Dr. Jennings and [facility] for surgery in 2 weeks for wound inspection. Time Spent: Less than 30 Minutes Stroke Is this a Stroke Patient?: No Stroke Pt being discharged on Anti-thrombolytic therapy?: Yes Acute Heart Failure - Is this a Heart Failure Patient?: No
[2019-11-29] MEDS ORDERED: ASPIRIN 81 MG TABLET, ENT COATED PO SCH (10:00)
[2019-11-29] MEDS: OXYCODONE HCL IR 5 MG TABLET PO PRN (10:14)
[2019-11-29] MEDS: SENNOSIDES/DOCUSATE 8.6-50 MG 1 EACH TABLET PO SCH (10:14)
[2019-11-29] MEDS: PRENATAL VITAMIN W DHA CAPSULE PO SCH (10:14)
[2019-11-29 12:12] VITALS: BP 118/58
== END 2019-11-29 12:57 | disposition home health service (06) | DRG 470 ==
LOC: INOR 05:34 → 4S 09:50
PROVIDERS: ADMIT Orthopaedic Surgery; ATTEND Orthopaedic Surgery
PROC: 0SR902Z Replacement of Right Hip Joint with Metal on Polyethylene Synthetic Substitute, Open Approach (ICD-10-PCS; principal; 2019-11-28 07:30)
DX: M16.11 Unilateral primary osteoarthritis, right hip (principal); Z79.899 Other long term (current) drug therapy
CPT/HCPCS: 01214; 36415; 71046; 72170; 80048; 85027; 86850; 86900; 86901; 87635; 88304; 88311; 93005; 93010; 94799; C1776; C9803; J0690; J1741; J2250; J2370; J2405; J2704; J3370; J3490; J7050; J7060